=== PATIENT | male | born 1970 | race Caucasian/White ===

== ENCOUNTER 2020-03-07 17:55 | Inpatient (IN) | payer MEDICARE, OTHER ==
[~2020-03-07] VITALS: Ht 185.4 cm; Wt 137.0 kg
[2020-03-07 18:47] LABS: BASOPHILS % (AUTO) 0.8 % (0.0-5.0); EOSINOPHILS % (AUTO) 1.5 % (0.0-8.0); HEMATOCRIT 32.2 % (42-54); LYMPHOCYTES % (AUTO) 24.8 % (21.0-51.0); MEAN CORPUSCULAR HEMOGLOBIN 28.1 pg (27.0-33.0); MEAN CORPUSCULAR VOLUME 87.7 fL (79-99); MONOCYTES % (AUTO) 9.6 % (3.0-13.0); NEUTROPHILS % (AUTO) 62.3 % (40.0-77.0); PLATELET COUNT (AUTO) 491 K/uL (130-400); RED BLOOD CELL COUNT(AUTO) 3.67 MIL/uL (4.50-6.20); RED CELL DISTRIBUTION WIDTH 15.3 % (11.0-15.5); WHITE BLOOD COUNT (AUTO) 12.5 K/uL (4.8-10.8)
[2020-03-07 18:58] LABS: CREATININE 6.6 mg/dL (0.5-1.5); POTASSIUM 5.5 mmol/L (3.5-5.1)
[2020-03-07 19:00] LABS: INR 1.05 (0.85-1.15); PROTHROMBIN TIME 11.2 SEC (9.6-11.6)
[2020-03-07] MEDS ORDERED: ACETAMINOPHEN 325 MG TAB PO PRN ×2 (19:00)
[2020-03-07] MEDS: CLINDAMYCIN IVPB 900MG/50ML 50 ML IV SCH ×2 (19:00→22:05)
[2020-03-07 19:03] LABS: ALBUMIN 2.3 g/dL (3.5-5.0); BILIRUBIN,TOTAL 0.2 mg/dL (0.2-1.0); TOTAL PROTEIN, SERUM 6.9 g/dL (6.0-8.3)
[2020-03-07] MEDS ORDERED: VANCOMYCIN PROTOCOL PER PHARMACY IV SCH (19:15)
[2020-03-07] MEDS ORDERED: HYDRALAZINE 20MG/ML VIAL IV PRN (19:15)
[2020-03-07] MEDS ORDERED: VANCOMYCIN 1G/250ML KIT 250 ML IV ONE (19:24)
[2020-03-07] MEDS ORDERED: ZOSYN 3.375GM+NS 50ML 50 ML IV ONE (19:24)
[2020-03-07] MEDS ORDERED: 0.9%NACL 1000ML 1,000 ML IV ONE ×2 (19:25→21:14)
[2020-03-07] MEDS ORDERED: COMPOUND IV REFRIGERATED 1 EACH IVSOLN MISC PRN (20:15)
[2020-03-07] MEDS: INSULIN HUMULIN R 100 UNIT/ML 3ML SQ SCH (21:00)
[2020-03-07] MEDS ORDERED: VANCOMYCIN 1G 2 GM in 0.9% NACL 500ML IV.SOLN 500 ML IV ONE (21:00)
[2020-03-07] MEDS ORDERED: CLINDAMYCIN IVPB 900MG/50ML 50 ML IV ONE (21:12)
[2020-03-07] MEDS ORDERED: FAMOTIDINE 20MG VIAL IV ONE (21:13)
[2020-03-07] MEDS ORDERED: MORPHINE 2 MG SYG ONE (21:13)
[2020-03-07 23:00] VITALS: BP_SYST 158; BP_SYST 168; BP_DIAS 88; BP_DIAS 89
[2020-03-07] MEDS ORDERED: NPH,100V11 SQ (23:14)
[2020-03-07] MEDS ORDERED: INSREG SQ (23:14)
[2020-03-07] MEDS ORDERED: METO100T14 PO (23:14)
[2020-03-07] MEDS: MORPHINE 2 MG SYG IVP PRN (23:50)
[2020-03-08] VITALS (18 sets, daily range): BP systolic 121–186; BP diastolic 70–92
[2020-03-08] MEDS: CLINDAMYCIN IVPB 900MG/50ML 50 ML IV SCH (03:56)
[2020-03-08] MEDS: INSULIN HUMULIN R 100 UNIT/ML 3ML SQ SCH ×4 (05:57→20:25)
[2020-03-08 05:59] LABS: BASOPHILS % (AUTO) 0.6 % (0.0-5.0); EOSINOPHILS % (AUTO) 2.3 % (0.0-8.0); HEMATOCRIT 30.1 % (42-54); LYMPHOCYTES % (AUTO) 32.5 % (21.0-51.0); MEAN CORPUSCULAR HEMOGLOBIN 27.3 pg (27.0-33.0); MEAN CORPUSCULAR HGB CONC 30.9 g/dL (32.0-36.0); MEAN CORPUSCULAR VOLUME 88.3 fL (79-99); MONOCYTES % (AUTO) 11.9 % (3.0-13.0); NEUTROPHILS % (AUTO) 51.7 % (40.0-77.0); PLATELET COUNT (AUTO) 388 K/uL (130-400); RED BLOOD CELL COUNT(AUTO) 3.41 MIL/uL (4.50-6.20); RED CELL DISTRIBUTION WIDTH 15.4 % (11.0-15.5); WHITE BLOOD COUNT (AUTO) 11.2 K/uL (4.8-10.8)
[2020-03-08] MEDS ORDERED: GLUCAGON 1MG KIT 1 MG ML IM PRN (06:00)
[2020-03-08] MEDS ORDERED: DEXTROSE 50%-WATER 50 ML DISP.SYRIN IV PRN (06:00)
[2020-03-08] MEDS ORDERED: DEXTROSE 50%-WATER 50 ML DISP.SYRIN IV ONE (06:02)
[2020-03-08 06:05] LABS: HEMOGLOBIN A1C 7.3 % (4.0-6.0)
[2020-03-08 06:22] LABS: ALBUMIN 1.7 g/dL (3.5-5.0); BILIRUBIN,TOTAL 0.2 mg/dL (0.2-1.0); CREATININE 6.3 mg/dL (0.5-1.5); POTASSIUM 4.9 mmol/L (3.5-5.1); TOTAL PROTEIN, SERUM 6.5 g/dL (6.0-8.3)
[2020-03-08] MEDS ORDERED: VANCOMYCIN 1G 1.5 GM in 0.9% NACL 250ML 250 ML IV SCH (09:00)
[2020-03-08] MEDS: METOPROLOL TARTRATE 50 MG TAB PO SCH ×2 (09:18→20:19)
[2020-03-08] MEDS: FAMOTIDINE 20MG VIAL IV SCH (09:18)
[2020-03-08] MEDS ORDERED: 0.9%NACL 1000ML 1,000 ML IV ONE (09:29)
[2020-03-08] MEDS ORDERED: LIDOCAINE HCL 1% 20 ML VIAL ONE (09:31)
[2020-03-08] MEDS ORDERED: BUPIVACAINE/PF 0.5% 30ML VIAL ONE (09:31)
[2020-03-08 09:40] LABS: CREATININE,URINE RANDOM 40 mg/dL (30-135); SODIUM,URINE RANDOM 72 mmol/l (40-220)
[2020-03-08 09:42] LABS: APPEARANCE,URINE Clear (CLEAR); BILIRUBIN,URINE Negative (NEGATIVE); COLOR,URINE Yellow (YELLOW); GLUCOSE, URINE (UA) TRACE mg/dL (NEGATIVE); KETONES,URINE Negative (NEGATIVE); LEUKOCYTE ESTERASE ,URINE Negative (NEGATIVE); NITRATE,URINE Negative (NEGATIVE); OCCULT BLOOD,URINE Small (NEGATIVE); PROTEIN,URINE 300 mg/dL (NEGATIVE); UROBILINOGEN,URINE 0.2 mg/dL (0.2-1.0)
[2020-03-08] MEDS ORDERED: PROPOFOL 1000 MG/100 ML 100 ML IV ONE ×2 (09:49→11:04)
[2020-03-08 09:56] LABS: BACTERIA,URINE Rare /HPF (None Seen); RBC,URINE 0-1 /HPF (0-1); SQUAMOUS EPITHELIAL CELL,UR Rare /HPF (0-2); WBC,URINE 0-1 /HPF (0-1)
[2020-03-08] MEDS ORDERED: SODIUM BICARBONATE 650 MG TAB PO PRN (11:00)
[2020-03-08 13:51] LABS: PROTEIN,URINE RANDOM 498.1 mg/dL (0-11.9)
[2020-03-08] MEDS ORDERED: HYDROMORPHONE HCL 2 MG TAB PO PRN (14:00)
[2020-03-08 14:08] LABS: CREATININE 6.5 mg/dL (0.5-1.5); POTASSIUM 6.1 mmol/L (3.5-5.1)
[2020-03-08] MEDS ORDERED: INSULIN HUMULIN R 100 UNIT/ML 3ML SQ SCH (16:15)
[2020-03-08] MEDS ORDERED: KAYEXALATE 15GM/60ML PO SCH (16:15)
[2020-03-08] MEDS ORDERED: DEXTROSE 50%-WATER 50 ML DISP.SYRIN IV SCH (16:15)
[2020-03-08] MEDS: ZYVOX 600 MG TAB PO SCH (17:28)
[2020-03-08] MEDS: SODIUM BICARBONATE 650 MG TAB PO SCH ×2 (17:29→21:35)
[2020-03-08 18:35] LABS: CREATININE 6.6 mg/dL (0.5-1.5); POTASSIUM 5.4 mmol/L (3.5-5.1)
[2020-03-08] MEDS: MORPHINE 2 MG SYG IVP PRN (18:52)
[2020-03-09] MEDS: ZYVOX 600 MG TAB PO SCH ×2 (03:20→14:38)
[2020-03-09 03:59] LABS: BASOPHILS % (AUTO) 0.7 % (0.0-5.0); EOSINOPHILS % (AUTO) 1.6 % (0.0-8.0); MEAN CORPUSCULAR HEMOGLOBIN 27.5 pg (27.0-33.0); MEAN CORPUSCULAR HGB CONC 31.5 g/dL (32.0-36.0); MEAN CORPUSCULAR VOLUME 87.4 fL (79-99); MONOCYTES % (AUTO) 12.8 % (3.0-13.0); NEUTROPHILS % (AUTO) 60.1 % (40.0-77.0); PLATELET COUNT (AUTO) 356 K/uL (130-400); RED BLOOD CELL COUNT(AUTO) 3.09 MIL/uL (4.50-6.20); RED CELL DISTRIBUTION WIDTH 15.3 % (11.0-15.5); WHITE BLOOD COUNT (AUTO) 10.4 K/uL (4.8-10.8)
[2020-03-09 04:12] VITALS: BP 152/80
[2020-03-09 04:13] LABS: ALBUMIN 1.8 g/dL (3.5-5.0); BILIRUBIN,TOTAL 0.2 mg/dL (0.2-1.0); CREATININE 6.5 mg/dL (0.5-1.5); POTASSIUM 5.3 mmol/L (3.5-5.1); TOTAL PROTEIN, SERUM 6.3 g/dL (6.0-8.3)
[2020-03-09 04:15] LABS: % IRON SATURATION 17.4 % (30-44)
[2020-03-09] MEDS: INSULIN HUMULIN R 100 UNIT/ML 3ML SQ SCH ×4 (06:33→21:26)
[2020-03-09 08:00] VITALS: BP 174/74
[2020-03-09] MEDS: SODIUM BICARBONATE 650 MG TAB PO SCH ×2 (08:58→20:13)
[2020-03-09] MEDS: FAMOTIDINE 20MG VIAL IV SCH (08:58)
[2020-03-09] MEDS: METOPROLOL TARTRATE 50 MG TAB PO SCH ×3 (08:58→20:13)
[2020-03-09] MEDS: MORPHINE 2 MG SYG IVP PRN ×2 (09:06→20:12)
[2020-03-09] MEDS ORDERED: EPOETIN ALFA-EPBX (ESRD) 10,000 UNIT/ML VIAL SQ SCH (11:15)
[2020-03-09 12:45] VITALS: BP 191/83
[2020-03-09] MEDS: FERROUS SULFATE 325 MG TABLET.DR PO SCH (14:38)
[2020-03-09] MEDS: IRON SUCROSE COMPLEX 100 MG in 0.9%NACL 50ML 50 ML IV SCH (14:39)
[2020-03-09 17:10] VITALS: BP 175/90
[2020-03-09 20:00] VITALS: BP 160/84
[2020-03-10] VITALS: BP 160/78
[2020-03-10] MEDS: ZYVOX 600 MG TAB PO SCH ×2 (02:24→15:32)
[2020-03-10 04:00] VITALS: BP 168/73
[2020-03-10] MEDS: INSULIN HUMULIN R 100 UNIT/ML 3ML SQ SCH ×4 (06:10→20:03)
[2020-03-10 06:15] LABS: HEMATOCRIT 24.8 % (42-54); MEAN CORPUSCULAR HEMOGLOBIN 28.1 pg (27.0-33.0); MEAN CORPUSCULAR HGB CONC 32.3 g/dL (32.0-36.0); RED BLOOD CELL COUNT(AUTO) 2.85 MIL/uL (4.50-6.20); RED CELL DISTRIBUTION WIDTH 15.1 % (11.0-15.5); WHITE BLOOD COUNT (AUTO) 9.9 K/uL (4.8-10.8)
[2020-03-10 06:41] LABS: CREATININE 6.5 mg/dL (0.5-1.5)
[2020-03-10 08:06] VITALS: BP 165/77
[2020-03-10] MEDS: FAMOTIDINE 20MG VIAL IV SCH (10:08)
[2020-03-10] MEDS: SODIUM BICARBONATE 650 MG TAB PO SCH ×2 (10:08→19:32)
[2020-03-10] MEDS: METOPROLOL TARTRATE 50 MG TAB PO SCH ×2 (10:08→19:32)
[2020-03-10] MEDS: FERROUS SULFATE 325 MG TABLET.DR PO SCH (10:08)
[2020-03-10] MEDS: IRON SUCROSE COMPLEX 100 MG in 0.9%NACL 50ML 50 ML IV SCH (10:14)
[2020-03-10 12:00] VITALS: BP 180/76
[2020-03-10 18:12] VITALS: BP 149/83
[2020-03-10 19:00] VITALS: BP 168/76
[2020-03-10] MEDS: MORPHINE 2 MG SYG IVP PRN (19:32)
[2020-03-11] MEDS: ZYVOX 600 MG TAB PO SCH ×2 (02:28→15:06)
[2020-03-11 04:00] VITALS: BP 175/83
[2020-03-11] MEDS: INSULIN HUMULIN R 100 UNIT/ML 3ML SQ SCH ×4 (05:35→22:03)
[2020-03-11 06:41] LABS: BASOPHILS % (AUTO) 0.7 % (0.0-5.0); EOSINOPHILS % (AUTO) 3.1 % (0.0-8.0); HEMATOCRIT 26.1 % (42-54); LYMPHOCYTES % (AUTO) 29.9 % (21.0-51.0); MEAN CORPUSCULAR HEMOGLOBIN 27.8 pg (27.0-33.0); MEAN CORPUSCULAR HGB CONC 32.2 g/dL (32.0-36.0); MEAN CORPUSCULAR VOLUME 86.4 fL (79-99); NEUTROPHILS % (AUTO) 54.8 % (40.0-77.0); PLATELET COUNT (AUTO) 313 K/uL (130-400); RED BLOOD CELL COUNT(AUTO) 3.02 MIL/uL (4.50-6.20); RED CELL DISTRIBUTION WIDTH 15.1 % (11.0-15.5); WHITE BLOOD COUNT (AUTO) 8.2 K/uL (4.8-10.8)
[2020-03-11 07:25] LABS: ALBUMIN 1.7 g/dL (3.5-5.0); BILIRUBIN,TOTAL 0.2 mg/dL (0.2-1.0); CREATININE 6.5 mg/dL (0.5-1.5); POTASSIUM 4.9 mmol/L (3.5-5.1); TOTAL PROTEIN, SERUM 6.2 g/dL (6.0-8.3)
[2020-03-11 08:00] VITALS: BP 162/90
[2020-03-11] MEDS: SODIUM BICARBONATE 650 MG TAB PO SCH ×2 (09:48→21:51)
[2020-03-11] MEDS: METOPROLOL TARTRATE 50 MG TAB PO SCH ×2 (09:49→21:52)
[2020-03-11] MEDS: FERROUS SULFATE 325 MG TABLET.DR PO SCH (09:49)
[2020-03-11] MEDS: IRON SUCROSE COMPLEX 100 MG in 0.9%NACL 50ML 50 ML IV SCH (09:50)
[2020-03-11] MEDS: FAMOTIDINE 20MG VIAL IV SCH (09:52)
[2020-03-11] MEDS ORDERED: COMPOUND IV MISC 1 EACH IVSOLN MISC PRN (12:30)
[2020-03-11 12:57] VITALS: BP 198/86
[2020-03-11] MEDS ORDERED: METOPROLOL TARTRATE 1 MG/ML 5ML VIAL IV PRN (15:00)
[2020-03-11] MEDS ORDERED: HYDRALAZINE 25MG TABLET PO SCH ×2 (16:00→21:00)
[2020-03-11] MEDS: MORPHINE 2 MG SYG IVP PRN (16:08)
[2020-03-11 16:55] VITALS: BP 174/66
[2020-03-11] MEDS: HYDRALAZINE 25MG TABLET PO PRN (17:13)
[2020-03-11] MEDS ORDERED: HYDRALAZINE 25MG TABLET PO ONE (18:30)
[2020-03-11 20:44] VITALS: BP 188/90
[2020-03-11] MEDS: HYDRALAZINE 25MG TABLET PO SCH (21:51)
[2020-03-11 23:30] VITALS: BP 159/86
[2020-03-12 03:54] VITALS: BP 178/83
[2020-03-12] MEDS: INSULIN HUMULIN R 100 UNIT/ML 3ML SQ SCH ×2 (05:42→11:30)
[2020-03-12] MEDS ORDERED: ZYVOX 600 MG TAB PO SCH (06:00)
[2020-03-12] MEDS: HYDRALAZINE 25MG TABLET PO PRN (06:25)
[2020-03-12 06:36] LABS: BASOPHILS % (AUTO) 0.7 % (0.0-5.0); EOSINOPHILS % (AUTO) 2.7 % (0.0-8.0); HEMATOCRIT 26.8 % (42-54); LYMPHOCYTES % (AUTO) 27.6 % (21.0-51.0); MEAN CORPUSCULAR HGB CONC 32.5 g/dL (32.0-36.0); MEAN CORPUSCULAR VOLUME 86.2 fL (79-99); MONOCYTES % (AUTO) 11.8 % (3.0-13.0); NEUTROPHILS % (AUTO) 56.6 % (40.0-77.0); PLATELET COUNT (AUTO) 319 K/uL (130-400); RED BLOOD CELL COUNT(AUTO) 3.11 MIL/uL (4.50-6.20); RED CELL DISTRIBUTION WIDTH 15.1 % (11.0-15.5)
[2020-03-12 07:31] LABS: ALBUMIN 1.8 g/dL (3.5-5.0); BILIRUBIN,TOTAL 0.2 mg/dL (0.2-1.0); CREATININE 6.3 mg/dL (0.5-1.5); POTASSIUM 4.4 mmol/L (3.5-5.1); TOTAL PROTEIN, SERUM 6.6 g/dL (6.0-8.3)
[2020-03-12 08:05] VITALS: BP 187/84
[2020-03-12] MEDS: METOPROLOL TARTRATE 50 MG TAB PO SCH (08:47)
[2020-03-12] MEDS: FERROUS SULFATE 325 MG TABLET.DR PO SCH (08:47)
[2020-03-12] MEDS: IRON SUCROSE COMPLEX 100 MG in 0.9%NACL 50ML 50 ML IV SCH (08:47)
[2020-03-12] MEDS: FAMOTIDINE 20MG VIAL IV SCH (08:48)
[2020-03-12] MEDS: SODIUM BICARBONATE 650 MG TAB PO SCH (08:48)
[2020-03-12] MEDS: HYDRALAZINE 25MG TABLET PO SCH ×2 (08:48→14:34)
[2020-03-12 11:34] VITALS: BP 156/70
[2020-03-12] MEDS: MORPHINE 2 MG SYG IVP PRN (14:34)
[2020-03-12] MEDS ORDERED: HYDR-4154 PO (14:35)
[2020-03-12] MEDS ORDERED: SODI650T PO (14:35)
== END 2020-03-12 15:55 | disposition home health service (06) | DRG 617 ==
LOC: EDH 17:55 → EDHIP 18:55 → 3AH 21:45 → 4BH 03-08 18:25 → 4CH 03-10 17:52 → 3AH 03-11 10:38
PROVIDERS: ADMIT Internal Medicine; ATTEND Internal Medicine
PROC: 0QBP0ZZ Excision of Left Metatarsal, Open Approach (ICD-10-PCS; 2020-03-08)
PROC: 0Y6W0Z0 Detachment at Left 4th Toe, Complete, Open Approach (ICD-10-PCS; principal; 2020-03-08 09:25)
DX: E11.69 Type 2 diabetes mellitus with other specified complication (principal); E87.2 Acidosis; L02.612 Cutaneous abscess of left foot; L03.116 Cellulitis of left lower limb; M86.8X7 Other osteomyelitis, ankle and foot; N17.9 Acute kidney failure, unspecified; E11.621 Type 2 diabetes mellitus with foot ulcer; L97.529 Non-pressure chronic ulcer of other part of left foot with unspecified severity; M60.9 Myositis, unspecified; I12.9 Hypertensive chronic kidney disease with stage 1 through stage 4 chronic kidney disease, or unspecified chronic kidney disease; E87.5 Hyperkalemia; G47.33 Obstructive sleep apnea (adult) (pediatric); E66.01 Morbid (severe) obesity due to excess calories; D50.9 Iron deficiency anemia, unspecified; E11.42 Type 2 diabetes mellitus with diabetic polyneuropathy; L97.519 Non-pressure chronic ulcer of other part of right foot with unspecified severity; N18.9 Chronic kidney disease, unspecified; E11.22 Type 2 diabetes mellitus with diabetic chronic kidney disease; E11.21 Type 2 diabetes mellitus with diabetic nephropathy; Z87.01 Personal history of pneumonia (recurrent); Z68.39 Body mass index [BMI] 39.0-39.9, adult; Z86.19 Personal history of other infectious and parasitic diseases; Z83.3 Family history of diabetes mellitus; Z79.899 Other long term (current) drug therapy; Z89.422 Acquired absence of other left toe(s); Z86.16 Personal history of COVID-19
CPT/HCPCS: 36415; 73630; 73718; 76770; 80048; 80053; 80202; 81001; 82570; 82948; 83036; 83540; 83550; 84100; 84145; 84156; 84300; 85025; 85027; 85610; 85730; 87040; 87070; 87076; 87205; 88304; 88311; 93926; 97039; G0378; J1756; J1815; J2543; J2704; J3370; J3490; J7030; J7040; J7050; J7070